=== PATIENT | male | born 1955 | race Caucasian/White ===

== ENCOUNTER 2018-10-07 08:07 | Inpatient (IN) | payer OTHER ==
[2018-10-07 08:29] VITALS: BMI 21.3
--- NOTE | 2018-10-07 08:50 | HP ---
CIWA Score Nausea/Vomitin-No Nausea/No Vomiting (patient meets criteria) Muscle Tremors: 6 Anxiety: 1-Mildly Anxious Agitation: 2 (patient is in withdrawals from alcohol) Paroxysmal Sweats: 1-Minimal Palms Moist Orientation: 0-Oriented Tacttile Disturbances: 1-Very Mild Itch/Numbness Auditory Disturbances: 1-Very Mild Visual Disturbances: 1-Very Mild Sensitivity Headache: 1-Very Mild CIWA-Ar Total Score: 14 - Admission Criteria OASAS Guidelines: Admission for Medically Managed Detox: Requires at least one of the followin. CIWA greater than 12 2. Seizures within the past 24 hours 3. Delirium tremens within the past 24 hours 4. Hallucinations within the past 24 hours 5. Acute intervention needed for co occurring medical disorder 6. Acute intervention needed for co occurring psychiatric disorder 7. Severe withdrawal that cannot be handled at a lower level of care (continued vomiting, continued diarrhea, abnormal vital signs) requiring intravenous medication and/or fluids 8. Admission ROS [facility] Chief Complaint: " I just want to get detoxed" " I'm going to check out this program and then return [facility]" "I want to go to the residential program once I finish detox." Allergies/Adverse Reactions: Allergies Allergy/AdvReac Type Severity Reaction Status Date / Time No Known Allergies Allergy Verified 10/07/18 08:25 History of Present Illness: This is a 63 year old male who has a history of alcohol dependence since 14 years old and starting drinking heavily at 21 years of age. Patient tripped and fell and was brought [facility] and was "drying out". Patient denies seizures from alcohol withdrawals. He drinks 1 pint of vodka, gin or perla and a 6 pack of beer per day. He is a cigarette smoker of 1ppd since 16 years of age. PMHx: Denies any medical history Psurg Hx: Tonsillectomy, had left arm fracture that he never got fixated and took off the temporary cast and never followed up with. Patient is homeless and lives with friends when he can. Patient has no legal issues pending. 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 He now wants to detox and followed by rehab here. Exam Limitations: No Limitations - Ebola screening Have you traveled outside of the country in the last 21 days: No Have you had contact with anyone from an Ebola affected area: No Have you been sick,other than usual withdrawal symptoms: No Do you have a fever: No - Review of Systems Constitutional: Chills, Diaphoresis, Loss of Appetite EENT: reports: No Symptoms Reported, Dental Problems (many missing teeth) Respiratory: reports: Cough (chronic cough productive of white mucuous) Cardiac: reports: No Symptoms Reported GI: reports: Indigestion : reports: No Symptoms Reported Musculoskeletal: reports: No Symptoms Reported Integumentary: reports: No Symptoms Reported Neuro: reports: Tremors Endocrine: reports: No Symptoms Reported Hematology: reports: No Symptoms Reported Psychiatric: reports: Judgement Intact, Mood/Affect Appropiate, Orientated x3 Other Systems: Reviewed and Negative Patient History - Patient Medical History Hx Anemia: No Hx Asthma: No Hx Chronic Obstructive Pulmonary Disease (COPD): No Hx Cancer: No Hx Cardiac Disorders: No Hx Congestive Heart Failure: No Hx Hypertension: No Hx Hypercholesterolemia: No Hx Pacemaker: No HX Cerebrovascular Accident: No Hx Seizures: No Hx Dementia: No Hx Diabetes: No Hx Gastrointestinal Disorders: No Hx Liver Disease: No Hx Genitourinary Disorders: No Hx Sexually Transmitted Disorders: No Hx Renal Disease (ESRD): No Hx Thyroid Disease: No Hx Human Immunodeficiency Virus (HIV): No Hx Hepatitis C: No Hx Depression: No Hx Suicide Attempt: No Hx Bipolar Disorder: No Hx Schizophrenia: No - Patient Surgical History Past Surgical History: No Hx Neurologic Surgery: No Hx Cataract Extraction: No Hx Cardiac Surgery: No Hx Lung Surgery: No Hx Breast Surgery: No Hx Breast Biopsy: No Hx Abdominal Surgery: No Hx Appendectomy: No Hx Cholecystectomy: No Hx Genitourinary Surgery: No Hx Section: No Hx Orthopedic Surgery: Yes (had a fracture left arm but never followed up) Hx Hysterectomy: No Anesthesia Reaction: No - PPD History Previous Implant?: Yes Documented Results: Negative w/o proof Implanted On Prior R Admission?: No Date: 04/15/16 (at [facility] in [place]) PPD to be Administered?: No - Reproductive History Patient is a Female of Child Bearing Age (11 -55 yrs old): No - Smoking Cessation Smoking history: Current every day smoker Have you smoked in the past 12 months: Yes Aproximately how many cigarettes per day: 20 Hx Chewing Tobacco Use: No Initiated information on smoking cessation: Yes 'Breaking Loose' booklet given: 10/07/18 - Substance & Tx. History Hx Alcohol Use: Yes (1 pint of vodka and 6 pack of beer per day) Hx Substance Use: No Hx Substance Use Treatment: Yes ([facility] in past) - Substances abused Alcohol Substance route: Oral Frequency: Daily Amount used: 1 pint of vodka & 6 pk beer Age of first use: 15 Date of last use: 10/06/18 Family Disease History - Family Disease History Family Disease History: Other: Father (Throat Cancer), Mother (Cancer, unknown) , Brother (1 brother alive and well, 1 brother of DM complications) , Sister (1 sister, unknown health) Admission Physical Exam [facility] - Vital Signs Vital Signs: Vital Signs - 24 hr 10/07/18 08:24 Temperature 98.8 F Pulse Rate 94 H Respiratory 20 Rate Blood Pressure 138/92 - Physical General Appearance: Yes: Disheveled, Moderate Distress HEENTM: Yes: EOMI, Hearing grossly Normal, Normal ENT Inspection, Normocephalic , Normal Voice, ASHLEY, Pharynx Normal Respiratory: Yes: Chest Non-Tender, Respiratory Distress, Wheezing, Expiration Neck: Yes: No masses,lesions,Nodules, Supple, Trachea in good position Breast: Yes: Within Normal Limits Cardiology: Yes: Regular Rhythm, S1, S2, Tachycardia Abdominal: Yes: Normal Bowel Sounds, Non Tender, Flat Genitourinary: Yes: Other (no penile discharge and no testicular masses) Back: Yes: Normal Inspection Musculoskeletal: Yes: full range of Motion, Gait Steady Extremities: Yes: Normal Capillary Refill, Normal Inspection, Normal Range of Motion, Non-Tender, Other (ulcer left heel of foot) 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, Fully Oriented, Alert, Motor Strength 5/5, Normal Mood/Affect Integumentary: Yes: Normal Color, Dry, Warm Lymphatic: Yes: Within Normal Limits - Diagnostic (1) Alcohol dependence with withdrawal Current Visit: Yes Status: Acute (2) Hypertension Current Visit: Yes Status: Acute (3) Ulcer of left heel Current Visit: Yes Status: Acute (4) Nicotine dependence with current use Current Visit: Yes Status: Acute Cleared for Admission [facility] - Detox or Rehab [facility] Level of Care: Medically Managed Detox Regimen/Protocol: Librium Screened but not Admitted - Documentation of Visit Screened but not Admitted: No Breathalyzer - Breathalyzer Breathalyzer: 0 (last drink more than 1 day ago) Vital Signs - Vital Signs Vital signs refused: No Temperature: 98.8 F Temperature source: Oral Pulse Rate: 94 Respiratory Rate: 20 Blood Pressure: 138/92 BP Location: Left Arm Blood Pressure position: Sitting - Height Height: 5 ft 6 in - Weight Weight: 132 lb Weight measurement method: Standing scale - BMI Body Mass Index (BMI): 21.3 - Bowel Function Bowel Movement: No Inpatient Rehab Admission - Rehab Decision to Admit Inpatient rehab admission?: No
[2018-10-07] MEDS ORDERED: MAGNESIUM CITRATE 300 ML BOTTLE PO PRN (09:11)
[2018-10-07] MEDS ORDERED: IBUPROFEN 400 MG TABLET (FP) PO PRN (09:11)
[2018-10-07] MEDS ORDERED: MAG HYDROX/AL HYDROX/SIMETH 30 ML UNIT-DOSE CUP PO PRN (09:11)
[2018-10-07] MEDS ORDERED: MELATONIN 5 MG TABLETS PO PRN (09:11)
[2018-10-07] MEDS ORDERED: chlordiazePOXIDE HCL 25 MG CAPSULE PO PRN (09:11)
[2018-10-07] MEDS ORDERED: BISMUTH SUBSALICYLATE 524 MG/30 ML UD PO PRN (09:11)
[2018-10-07] MEDS ORDERED: MENTHOL/PHENOL 1 EACH UD MM PRN (09:11)
[2018-10-07] MEDS ORDERED: METHOCARBAMOL 500 MG TABLET PO PRN (09:11)
[2018-10-07] MEDS ORDERED: MAGNESIUM HYDROX 2400MG/30ML ORAL SUSPENSION 30 ML CUP PO PRN (09:11)
[2018-10-07] MEDS ORDERED: hydrOXYzine PAMOATE 25 MG CAPSULE (FP) PO PRN (09:11)
[2018-10-07] MEDS ORDERED: ACETAMINOPHEN 325 MG TABLET (FP) PO PRN ×2 (09:11)
[2018-10-07] MEDS ORDERED: LISINOPRIL 5 MG TABLET (FP) PO ONE (10:20)
[2018-10-07] MEDS: PRENATAL VITAMINS W/ FOLIC ACID TABLET (FP) PO SCH (11:08)
[2018-10-07] MEDS: NICOTINE 21 MG/24 HOURS TOPICAL PATCH TD SCH (11:08)
[2018-10-07 11:51] LABS: HEMATOCRIT 40.3 % (35.4-49); HEMOGLOBIN 13.7 GM/dL (11.7-16.9); MCH 31.8 pg (25.7-33.7); MEAN CELL VOLUME 93.7 fl (80-96); MEAN PLT VOLUME 9.8 fl (7.5-11.1); RDW 14.6 % (11.9-15.9); WHITE BLOOD COUNT 9.8 K/mm3 (4.0-10.0)
[2018-10-07 12:09] LABS: BILIRUBIN,TOTAL 0.5 mg/dL (0.2-1); BLOOD UREA NITROGEN 7.2 mg/dL (7-18); CALCIUM 9.7 mg/dL (8.5-10.1); CREATININE 0.9 mg/dL (0.55-1.3); POTASSIUM 4.8 mmol/L (3.5-5.1)
[2018-10-07 12:16] LABS: PLATELET COUNT 316 K/MM3 (134-434)
[2018-10-07] MEDS: chlordiazePOXIDE HCL 25 MG CAPSULE PO SCH (22:20)
[2018-10-07] MEDS: THIAMINE HCL 100 MG TABLET (FP) PO SCH (22:20)
[2018-10-08] MEDS: chlordiazePOXIDE HCL 25 MG CAPSULE PO SCH ×4 (05:45→22:40)
--- NOTE | 2018-10-08 09:46 | PN ---
S CIWA - CIWA Score Nausea/Vomitin-No Nausea/No Vomiting Muscle Tremors: 3 Anxiety: 3 Agitation: 0-Normal Activity Paroxysmal Sweats: 3 Orientation: 0-Oriented Tacttile Disturbances: 0-None Auditory Disturbances: 0-None Visual Disturbances: 0-None Headache: 2-Mild CIWA-Ar Total Score: 11 S Progress Note (SOAP) Subjective: c/o headache, shakes, anxiety, and sweats. Objective: 10/08/18 09:45 Vital Signs 10/08/18 10/08/18 10/08/18 03:30 06:14 09:29 Temperature 96.8 F L 97.7 F Pulse Rate 79 75 80 Respiratory 18 16 18 Rate Blood Pressure 125/72 103/64 Lab Results WBC 9.8 K/mm3 (4.0-10.0) 10/07/18 09:30 RBC 4.30 M/mm3 (4.00-5.60) 10/07/18 09:30 Hgb 13.7 GM/dL (11.7-16.9) 10/07/18 09:30 Hct 40.3 % (35.4-49) 10/07/18 09:30 MCV 93.7 fl (80-96) 10/07/18 09:30 MCHC 34.0 g/dl (32.0-35.9) 10/07/18 09:30 RDW 14.6 % (11.9-15.9) 10/07/18 09:30 Plt Count 316 K/MM3 (134-434) 10/07/18 09:30 Sodium 136 mmol/L (136-145) 10/07/18 09:30 Potassium 4.8 mmol/L (3.5-5.1) 10/07/18 09:30 Chloride 100 mmol/L (98-107) 10/07/18 09:30 Carbon Dioxide 30 mmol/L (21-32) 10/07/18 09:30 Anion Gap 7 MMOL/L (8-16) L 10/07/18 09:30 BUN 7.2 mg/dL (7-18) 10/07/18 09:30 Creatinine 0.9 mg/dL (0.55-1.3) 10/07/18 09:30 Random Glucose 193 mg/dL (74-106) H 10/07/18 09:30 Calcium 9.7 mg/dL (8.5-10.1) 10/07/18 09:30 Labs noted. Assessment: 10/08/18 09:45 AOX3, in no acute distress. Full ROM, ambulating in the unit. Withdrawal symptoms. Plan: continue detox.
[2018-10-08] MEDS: PRENATAL VITAMINS W/ FOLIC ACID TABLET (FP) PO SCH (10:08)
[2018-10-08] MEDS: NICOTINE 21 MG/24 HOURS TOPICAL PATCH TD SCH (10:08)
[2018-10-08] MEDS: THIAMINE HCL 100 MG TABLET (FP) PO SCH (22:40)
[2018-10-09] MEDS: chlordiazePOXIDE HCL 25 MG CAPSULE PO SCH ×3 (05:58→18:06)
[2018-10-09] MEDS: NICOTINE 21 MG/24 HOURS TOPICAL PATCH TD SCH (10:20)
[2018-10-09] MEDS: PRENATAL VITAMINS W/ FOLIC ACID TABLET (FP) PO SCH (10:21)
[2018-10-09] MEDS ORDERED: PANTOPRAZOLE 40 MG TABLET (FP) PO SCH (11:00)
[2018-10-09] MEDS: PANTOPRAZOLE 40 MG TABLET (FP) PO SCH (11:29)
--- NOTE | 2018-10-09 14:27 | PN ---
S CIWA - CIWA Score Nausea/Vomitin-Mild Nausea/No Vomiting Muscle Tremors: 3 Anxiety: 3 Agitation: 2 Paroxysmal Sweats: 2 Orientation: 0-Oriented Tacttile Disturbances: 0-None Auditory Disturbances: 0-None Visual Disturbances: 0-None Headache: 0-None Present CIWA-Ar Total Score: 11 BHS Progress Note (SOAP) Subjective: Stomachache, tremor, interrupted sleep. Patient request ensure but noted with serum glucose level of 193. Will rule out DM, can order ensure when DM ruled out. Objective: 10/09/18 14:23 Last Vital Signs Temp Pulse Resp BP Pulse Ox 98.1 F 82 16 143/89 10/09/18 13:27 10/09/18 13:27 10/09/18 13:27 10/09/18 13:27 Laboratory Tests 10/07/18 10/07/18 10/07/18 09:30 09:30 09:30 WBC 9.8 RBC 4.30 Hgb 13.7 Hct 40.3 MCV 93.7 MCH 31.8 MCHC 34.0 RDW 14.6 Plt Count 316 MPV 9.8 Sodium 136 Potassium 4.8 Chloride 100 Carbon Dioxide 30 Anion Gap 7 L BUN 7.2 Creatinine 0.9 Est GFR (CKD-EPI)AfAm 104.98 Est GFR (CKD-EPI)NonAf 90.58 Random Glucose 193 H Calcium 9.7 Total Bilirubin 0.5 AST 25 ALT 23 Alkaline Phosphatase 76 Total Protein 8.0 Albumin 4.0 RPR Titer Nonreactive Labs reviewed: serum glucose 193mg/dl Assessment: 10/09/18 14:24 Withdrawal sxs Noted with hyperglycemia Plan: Continue detox Encouraged PO water intake Hyperglycemia: rule out dm (patient denies DM; repeat fasting glucose, send A1c)
[2018-10-09] MEDS: THIAMINE HCL 100 MG TABLET (FP) PO SCH (22:17)
[2018-10-09] MEDS ORDERED: chlordiazePOXIDE 5 MG CAPSULE PO SCH (23:00)
[2018-10-10] MEDS ORDERED: chlordiazePOXIDE HCL 10 MG CAPSULE PO PRN
[2018-10-10] MEDS ORDERED: chlordiazePOXIDE 5 MG CAPSULE ONE ×4 (05:11→21:46)
[2018-10-10] MEDS: chlordiazePOXIDE HCL 10 MG CAPSULE PO SCH ×4 (05:49→22:56)
[2018-10-10] MEDS: PANTOPRAZOLE 40 MG TABLET (FP) PO SCH (07:27)
[2018-10-10] MEDS: PRENATAL VITAMINS W/ FOLIC ACID TABLET (FP) PO SCH (11:14)
[2018-10-10] MEDS: NICOTINE 21 MG/24 HOURS TOPICAL PATCH TD SCH (11:14)
--- NOTE | 2018-10-10 13:46 | PN ---
S CIWA - CIWA Score Nausea/Vomitin (Stomach Cramping.) Muscle Tremors: 4-Moderate,w/Arms Extend Anxiety: 2 Agitation: 0-Normal Activity Paroxysmal Sweats: No Perspiration Orientation: 2-Disoriented Date<2 days Tacttile Disturbances: 0-None Auditory Disturbances: 0-None Visual Disturbances: 0-None Headache: 0-None Present CIWA-Ar Total Score: 10 BHS Progress Note (SOAP) Subjective: Stomach Cramping, Tremors, Anxious, Interrupted Sleep. Objective: PATIENT A & O X 2 (UNCERTAIN ABOUT CURRENT DAY / DATE). IN NO ACUTE DISTRESS. 10/10/18 13:48 Vital Signs Temperature 97.9 F 10/10/18 13:05 Pulse Rate 84 10/10/18 13:05 Respiratory Rate 17 10/10/18 13:05 Blood Pressure 109/57 L 10/10/18 13:05 O2 Sat by Pulse Oximetry (%) Laboratory Tests 10/07/18 10/07/18 10/07/18 09:30 09:30 09:30 WBC 9.8 RBC 4.30 Hgb 13.7 Hct 40.3 MCV 93.7 MCH 31.8 MCHC 34.0 RDW 14.6 Plt Count 316 MPV 9.8 Sodium 136 Potassium 4.8 Chloride 100 Carbon Dioxide 30 Anion Gap 7 L BUN 7.2 Creatinine 0.9 Est GFR (CKD-EPI)AfAm 104.98 Est GFR (CKD-EPI)NonAf 90.58 Random Glucose 193 H Fasting Glucose Hemoglobin A1c % Calcium 9.7 Total Bilirubin 0.5 AST 25 ALT 23 Alkaline Phosphatase 76 Total Protein 8.0 Albumin 4.0 RPR Titer Nonreactive 10/10/18 10/10/18 07:00 07:00 WBC RBC Hgb Hct MCV MCH MCHC RDW Plt Count MPV Sodium Potassium Chloride Carbon Dioxide Anion Gap BUN Creatinine Est GFR (CKD-EPI)AfAm Est GFR (CKD-EPI)NonAf Random Glucose Fasting Glucose 87 Hemoglobin A1c % 5.7 Calcium Total Bilirubin AST ALT Alkaline Phosphatase Total Protein Albumin RPR Titer LABS NOTED. RESULTS OF FASTING GLUCOSE LEVEL AND OF HGB A1C NOTED. RESULTS OF BOTH VALUES ARE WITHIN NORMAL RANGE. RESULTS OF DETOX ADMISSION QFT /TB TEST PENDING. 10/10/18 13:49 Assessment: 10/10/18 13:48 WITHDRAWAL SYMPTOMS. Plan: CONTINUE DETOX. INCREASE DAILY PO WATER INTAKE.
[2018-10-10] MEDS: THIAMINE HCL 100 MG TABLET (FP) PO SCH (22:56)
[2018-10-11] MEDS ORDERED: chlordiazePOXIDE HCL 10 MG CAPSULE PO SCH (05:00)
[2018-10-11] MEDS ORDERED: chlordiazePOXIDE 5 MG CAPSULE ONE (05:37)
--- NOTE | 2018-10-11 09:38 | PN ---
S CIWA - CIWA Score Nausea/Vomitin-Mild Nausea/No Vomiting Muscle Tremors: 1-None Visible, but [place] Anxiety: 1-Mildly Anxious Agitation: 1-Slight > Activity Paroxysmal Sweats: No Perspiration Orientation: 0-Oriented Tacttile Disturbances: 1-Very Mild Itch/Numbness Auditory Disturbances: 0-None Visual Disturbances: 0-None Headache: 2-Mild CIWA-Ar Total Score: 7 BHS Progress Note (SOAP) Subjective: alert,irritable,anxious,interrupted sleep Objective: 10/11/18 09:37 Vital Signs Temperature 98.3 F 10/11/18 09:14 Pulse Rate 81 10/11/18 09:14 Respiratory Rate 16 10/11/18 09:14 Blood Pressure 121/80 10/11/18 09:14 O2 Sat by Pulse Oximetry (%) Assessment: 10/11/18 09:37 withdrawal symptom Plan: continue detox librium regime,discharge in am
[2018-10-11] MEDS: PANTOPRAZOLE 40 MG TABLET (FP) PO SCH (11:20)
[2018-10-11] MEDS: NICOTINE 21 MG/24 HOURS TOPICAL PATCH TD SCH (11:24)
[2018-10-11] MEDS: PRENATAL VITAMINS W/ FOLIC ACID TABLET (FP) PO SCH (11:24)
--- NOTE | 2018-10-11 13:21 | PN ---
[facility] Progress Note Note: patient would like to be discharged today,feeling much better,stable for discharged,follow up with after care program as arrangement
[2018-10-11 13:22] VITALS: BP 132/93; PULSE 88; TEMP 97.5
--- NOTE | 2018-10-11 13:24 | DS ---
[facility] Detox Discharge Summary Admission Date: 10/07/18 Discharge Date: 10/11/18 - History Present History: Alcohol Dependence Additional Comments: patient is stable for discharge today,follow up with after care program as arrangement Pertinent Past History: hypertension nicotine dependence - Physical Exam Results Vital Signs: Vital Signs Temperature 98.3 F 10/11/18 09:14 Pulse Rate 81 10/11/18 09:14 Respiratory Rate 16 10/11/18 09:14 Blood Pressure 121/80 10/11/18 09:14 O2 Sat by Pulse Oximetry (%) Pertinent Admission Physical Exam Findings: withdrawal symptom Vital Signs Temperature 97.5 F L 10/11/18 13:21 Pulse Rate 88 10/11/18 13:21 Respiratory Rate 16 10/11/18 13:21 Blood Pressure 132/93 10/11/18 13:21 O2 Sat by Pulse Oximetry (%) Laboratory Last Values WBC 9.8 K/mm3 (4.0-10.0) 10/07/18 09:30 RBC 4.30 M/mm3 (4.00-5.60) 10/07/18 09:30 Hgb 13.7 GM/dL (11.7-16.9) 10/07/18 09:30 Hct 40.3 % (35.4-49) 10/07/18 09:30 MCV 93.7 fl (80-96) 10/07/18 09:30 MCH 31.8 pg (25.7-33.7) 10/07/18 09:30 MCHC 34.0 g/dl (32.0-35.9) 10/07/18 09:30 RDW 14.6 % (11.9-15.9) 10/07/18 09:30 Plt Count 316 K/MM3 (134-434) 10/07/18 09:30 MPV 9.8 fl (7.5-11.1) 10/07/18 09:30 Sodium 136 mmol/L (136-145) 10/07/18 09:30 Potassium 4.8 mmol/L (3.5-5.1) 10/07/18 09:30 Chloride 100 mmol/L (98-107) 10/07/18 09:30 Carbon Dioxide 30 mmol/L (21-32) 10/07/18 09:30 Anion Gap 7 MMOL/L (8-16) L 10/07/18 09:30 BUN 7.2 mg/dL (7-18) 10/07/18 09:30 Creatinine 0.9 mg/dL (0.55-1.3) 10/07/18 09:30 Est GFR (CKD-EPI)AfAm 104.98 10/07/18 09:30 Est GFR (CKD-EPI)NonAf 90.58 10/07/18 09:30 Random Glucose 193 mg/dL (74-106) H 10/07/18 09:30 Fasting Glucose 87 mg/dL (74-106) 10/10/18 07:00 Hemoglobin A1c % 5.7 % (4.2-6.3) 10/10/18 07:00 Calcium 9.7 mg/dL (8.5-10.1) 10/07/18 09:30 Total Bilirubin 0.5 mg/dL (0.2-1) 10/07/18 09:30 AST 25 U/L (15-37) 10/07/18 09:30 ALT 23 U/L (13-61) 10/07/18 09:30 Alkaline Phosphatase 76 U/L (45-117) 10/07/18 09:30 Total Protein 8.0 g/dl (6.4-8.2) 10/07/18 09:30 Albumin 4.0 g/dl (3.4-5.0) 10/07/18 09:30 RPR Titer Nonreactive (NONREACTIVE) 10/07/18 09:30 TB (QFT) Incubation (.) 10/07/18 09:30 TB Test (QFT) Nil 0.03 IU/mL (.) 10/07/18 09:30 TB Test (QFT) Mitogen 1.93 IU/mL (.) 10/07/18 09:30 TB Test (QFT) Antigen 0.05 IU/mL (.) 10/07/18 09:30 TB Test (QFT) Negative (Negative) 10/07/18 09:30 TB Positive Criteria (.) 10/07/18 09:30 - Treatment Hospital Course: Detox Protocol Followed, Detoxed Safely, Responded well, Discharged Condition Good Patient has Accepted a Rehab Referral to: declined - Medication Discharge Medications: Ambulatory Orders NK [No Known Home Medication] 10/07/18 - Diagnosis (1) Alcohol dependence with withdrawal Current Visit: Yes Status: Acute (2) Hypertension Current Visit: Yes Status: Acute (3) Nicotine dependence with current use Current Visit: Yes Status: Acute (4) Ulcer of left heel Current Visit: Yes Status: Acute - AMA Did Patient Leave Against Medical Advice: No
[2018-10-12] MEDS ORDERED: chlordiazePOXIDE HCL 10 MG CAPSULE PO ONE (05:00)
== END 2018-10-11 13:35 | disposition home or self-care (01) | DRG 775 ==
LOC: YASAS 08:07 → Y6N 09:39
PROVIDERS: ADMIT Surgery; ATTEND Surgery
PROC: HZ2ZZZZ Detoxification Services for Substance Abuse Treatment (ICD-10-PCS; principal; 2018-10-07)
DX: F10.230 Alcohol dependence with withdrawal, uncomplicated (principal); F17.210 Nicotine dependence, cigarettes, uncomplicated; I10 Essential (primary) hypertension; L97.429 Non-pressure chronic ulcer of left heel and midfoot with unspecified severity; R73.9 Hyperglycemia, unspecified; R00.0 Tachycardia, unspecified
CPT/HCPCS: 36415; 80053; 82947; 83036; 85027; 86480; 86593

== ENCOUNTER 2019-01-19 12:06 | Inpatient (IN) | payer OTHER ==
[2019-01-19 12:19] VITALS: BMI 20.3
--- NOTE | 2019-01-19 14:01 | HP ---
CIWA Score Nausea/Vomitin Muscle Tremors: 7-Severe,w/o Arm Extended Anxiety: 0-No Anxiety, at Ease Agitation: 4-Moderately Restless Paroxysmal Sweats: No Perspiration Orientation: 0-Oriented Tacttile Disturbances: 0-None Auditory Disturbances: 0-None Visual Disturbances: 0-None Headache: 0-None Present CIWA-Ar Total Score: 16 - Admission Criteria OASAS Guidelines: Admission for Medically Managed Detox: Requires at least one of the followin. CIWA greater than 12 2. Seizures within the past 24 hours 3. Delirium tremens within the past 24 hours 4. Hallucinations within the past 24 hours 5. Acute intervention needed for co occurring medical disorder 6. Acute intervention needed for co occurring psychiatric disorder 7. Severe withdrawal that cannot be handled at a lower level of care (continued vomiting, continued diarrhea, abnormal vital signs) requiring intravenous medication and/or fluids 8. Admitting History and Physical - Admission History Source: Patient Limitations to Obtaining History: No Limitations - Past Medical History Cardiovascular: Yes: HTN - Past Surgical History Past Surgical History: Yes: None - Smoking History Smoking history: Current every day smoker Have you smoked in the past 12 months: Yes Aproximately how many cigarettes per day: 20 - Alcohol/Substance Use Hx Alcohol Use: Yes (1 pint of vodka and 6 pack of beer per day) Admission [facility] Allergies/Adverse Reactions: Allergies Allergy/AdvReac Type Severity Reaction Status Date / Time No Known Allergies Allergy Verified 01/19/19 12:19 History of Present Illness: 63 y.o. M PMH HTN, varicose veins presenting for alcohol detox. Patient was at [facility] yesterday- gave librium. Last week patient was in [facility] in [place] for pneumonia. EtOH: Drinks daily, 1 pint vodka & 1 6 pack beers. Last drink yesterday. Has been drinking since age 14. Never had withdrawal seizures in the past. PSH: none Social hx: living with friend. Not currently working-- friend he lives with ows a liquor store which is how he gets the alcohol. All: None Meds: hasnt taken HTN meds in 1 week- says his PCP told him he needs to stop drinking with his BP meds, so he threw the meds in the trash Exam Limitations: No Limitations - Ebola screening Have you traveled outside of the country in the last 21 days: No Have you had contact with anyone from an Ebola affected area: No Do you have a fever: No - Review of Systems Constitutional: No Symptoms Reported EENT: reports: No Symptoms Reported Respiratory: reports: No Symptoms reported Cardiac: reports: No Symptoms Reported GI: reports: No Symptoms Reported Musculoskeletal: reports: No Symptoms Reported Integumentary: reports: Other (varicose veins b/l LE) Neuro: reports: Tremors Endocrine: reports: No Symptoms Reported Hematology: reports: No Symptoms Reported Psychiatric: reports: No Sypmtoms Reported, Orientated x3 Patient History - Patient Medical History Hx Anemia: No Hx Asthma: No Hx Chronic Obstructive Pulmonary Disease (COPD): No Hx Cancer: No Hx Cardiac Disorders: No Hx Congestive Heart Failure: No Hx Hypertension: Yes Hx Hypercholesterolemia: No Hx Pacemaker: No HX Cerebrovascular Accident: No Hx Seizures: No Hx Dementia: No Hx Diabetes: No Hx Gastrointestinal Disorders: No Hx Liver Disease: No Hx Genitourinary Disorders: No Hx Sexually Transmitted Disorders: No Hx Renal Disease (ESRD): No Hx Thyroid Disease: No Hx Human Immunodeficiency Virus (HIV): No Hx Hepatitis C: No Hx Depression: No Hx Suicide Attempt: No Hx Bipolar Disorder: No Hx Schizophrenia: No - Patient Surgical History Past Surgical History: No Hx Neurologic Surgery: No Hx Cataract Extraction: No Hx Cardiac Surgery: No Hx Lung Surgery: No Hx Breast Surgery: No Hx Breast Biopsy: No Hx Abdominal Surgery: No Hx Appendectomy: No Hx Cholecystectomy: No Hx Genitourinary Surgery: No Hx Section: No Hx Orthopedic Surgery: No Hx Hysterectomy: No Anesthesia Reaction: No - PPD History Date: 04/15/16 - Smoking Cessation Smoking history: Current every day smoker Have you smoked in the past 12 months: Yes Aproximately how many cigarettes per day: 20 Hx Chewing Tobacco Use: No Initiated information on smoking cessation: Yes 'Breaking Loose' booklet given: 01/19/19 - Substance & Tx. History Hx Alcohol Use: Yes Substance Use Type: Marijuana - Substances abused Alcohol Substance route: Oral Frequency: Daily Amount used: 1 pint of vodka & 6 pk beer Age of first use: 14 Date of last use: 01/18/19 Admission Physical Exam [facility] - Vital Signs Vital Signs: Vital Signs - 24 hr 01/19/19 12:15 Temperature 98.1 F Pulse Rate 77 Respiratory 18 Rate Blood Pressure 109/74 - Physical General Appearance: Yes: Tremorous HEENTM: Yes: Hearing grossly Normal, Normocephalic, ASHLEY, Other (poor dentition) Respiratory: Yes: Lungs Clear, Normal Breath Sounds, No Respiratory Distress, No Accessory Muscle Use Neck: Yes: No masses,lesions,Nodules Cardiology: Yes: Regular Rhythm, Regular Rate, S1, S2 Abdominal: Yes: Normal Bowel Sounds, Non Tender, Soft Back: Yes: Normal Inspection Musculoskeletal: Yes: Within Normal Limits Extremities: Yes: Normal Range of Motion, Other (varicose veins b/l LE) Neurological: Yes: vp & general counsel II-XII NML intact, Alert Integumentary: Yes: Within Normal Limits - Diagnostic (1) Alcohol dependence with withdrawal Current Visit: No Status: Acute Qualifiers: Complication of substance-induced condition: uncomplicated Qualified Code(s ): F10.230 - Alcohol dependence with withdrawal, uncomplicated (2) Hypertension Current Visit: No Status: Chronic Qualifiers: Hypertension type: essential hypertension Qualified Code(s): I10 - Essential (primary) hypertension Breathalyzer - Breathalyzer Breathalyzer: 0 Urine Drug Screen - Test Device Lot number: [id number] Expiration date: 10/05/20 - Control Is test valid?: Yes - Results Drug screen NEGATIVE: No Urine drug screen results: BZO-Benzodiazepines Inpatient Rehab Admission - Rehab Decision to Admit Inpatient rehab admission?: No
[2019-01-19] MEDS ORDERED: METHOCARBAMOL 500 MG TABLET PO PRN (14:31)
[2019-01-19] MEDS ORDERED: MAGNESIUM CITRATE 300 ML BOTTLE PO PRN (14:31)
[2019-01-19] MEDS ORDERED: MAG HYDROX/AL HYDROX/SIMETH 30 ML UNIT-DOSE CUP PO PRN (14:31)
[2019-01-19] MEDS ORDERED: ACETAMINOPHEN 325 MG TABLET (FP) PO PRN ×2 (14:31)
[2019-01-19] MEDS ORDERED: BISMUTH SUBSALICYLATE 262 MG/15 ML BTL PO PRN (14:31)
[2019-01-19] MEDS ORDERED: chlordiazePOXIDE HCL 25 MG CAPSULE PO PRN (14:31)
[2019-01-19] MEDS ORDERED: MENTHOL/PHENOL 1 EACH UD MM PRN (14:31)
[2019-01-19] MEDS ORDERED: MAGNESIUM HYDROX 2400MG/30ML ORAL SUSPENSION 30 ML CUP PO PRN (14:31)
[2019-01-19] MEDS ORDERED: IBUPROFEN 400 MG TABLET (FP) PO PRN (14:31)
[2019-01-19] MEDS ORDERED: hydrOXYzine PAMOATE 25 MG CAPSULE (FP) PO PRN (14:31)
--- NOTE | 2019-01-19 15:18 | PN ---
Teaching Attending Note Name of Resident: Lia Cabral ATTENDING PHYSICIAN STATEMENT I saw and evaluated the patient. I reviewed the resident's note and discussed the case with the resident. I agree with the resident's findings and plan as documented. SUBJECTIVE: 63 y.o. mal e here requesting detox from etoh use , reports 1 pint and 1 x 6-pk beer daily , latest use yesterday , denies w/d seizures . PMH HTN, varicose veins . Patient was at [facility] yesterday , given Librium , Last week patient was in [facility] [place] for pneumonia. OBJECTIVE: wnwd , UE tremors , jordon LE extensive varicose veins. Vital Signs - 24 hr 01/19/19 12:15 Temperature 98.1 F Pulse Rate 77 Respiratory 18 Rate Blood Pressure 109/74 ASSESSMENT AND PLAN: Alcohol dependence - Librium detox.
[2019-01-19] MEDS: chlordiazePOXIDE HCL 25 MG CAPSULE PO SCH ×2 (16:24→22:08)
[2019-01-19] MEDS: MELATONIN 5 MG TABLETS PO PRN (22:08)
[2019-01-19] MEDS: THIAMINE HCL 100 MG TABLET (FP) PO SCH (22:08)
[2019-01-20] MEDS: chlordiazePOXIDE HCL 25 MG CAPSULE PO SCH ×4 (05:46→22:19)
[2019-01-20 10:31] LABS: ALBUMIN 3.5 g/dl (3.4-5.0); BILIRUBIN,TOTAL 0.6 mg/dL (0.2-1); BLOOD UREA NITROGEN 17.2 mg/dL (7-18); CALCIUM 9.3 mg/dL (8.5-10.1); CREATININE 0.7 mg/dL (0.55-1.3); POTASSIUM 4.1 mmol/L (3.5-5.1); TOT PROT 6.4 g/dl (6.4-8.2)
[2019-01-20 10:42] LABS: HEMATOCRIT 37.5 % (35.4-49); HEMOGLOBIN 12.3 GM/dL (11.7-16.9); MCH 30.2 pg (25.7-33.7); MCHC 32.8 g/dl (32.0-35.9); MEAN CELL VOLUME 92.3 fl (80-96); MEAN PLT VOLUME 10.9 fl (7.5-11.1); PLATELET COUNT 231 K/MM3 (134-434); RBC 4.06 M/mm3 (4.00-5.60); RDW 16.3 % (11.9-15.9); WHITE BLOOD COUNT 5.8 K/mm3 (4.0-10.0)
[2019-01-20] MEDS: PRENATAL VITAMINS W/ FOLIC ACID TABLET (FP) PO SCH (11:06)
--- NOTE | 2019-01-20 12:02 | PN ---
S CIWA - CIWA Score Nausea/Vomitin-Mild Nausea/No Vomiting Muscle Tremors: 1-None Visible, but [place] Anxiety: 1-Mildly Anxious Agitation: 1-Slight > Activity Paroxysmal Sweats: 3 Orientation: 1-Uncertain about Date Tacttile Disturbances: 2-Mild Itch/Numbness/Burn Auditory Disturbances: 0-None Visual Disturbances: 0-None Headache: 1-Very Mild CIWA-Ar Total Score: 11 BHS Progress Note (SOAP) Subjective: interrupted sleep sweats, shakes , abdominal pain , heartburn Objective: 01/20/19 12:03 Vital Signs Temperature 97.5 F L 01/20/19 09:29 Pulse Rate 72 01/20/19 09:29 Respiratory Rate 16 01/20/19 09:29 Blood Pressure 110/72 01/20/19 09:29 O2 Sat by Pulse Oximetry (%) Laboratory Tests 01/20/19 01/20/19 01/20/19 07:00 07:00 07:00 WBC 5.8 RBC 4.06 Hgb 12.3 Hct 37.5 MCV 92.3 MCH 30.2 MCHC 32.8 RDW 16.3 H Plt Count 231 D MPV 10.9 D Sodium 140 Potassium 4.1 Chloride 106 Carbon Dioxide 30 Anion Gap 4 L BUN 17.2 Creatinine 0.7 Est GFR (CKD-EPI)AfAm 116.40 Est GFR (CKD-EPI)NonAf 100.43 Random Glucose 94 Calcium 9.3 Total Bilirubin 0.6 AST 13 L ALT 16 Alkaline Phosphatase 65 Total Protein 6.4 Albumin 3.5 RPR Titer Nonreactive pt aox3 in nad lying in bed Assessment: 01/20/19 12:03 withdrawal sx's gerd Plan: cont. detox increase protonix
[2019-01-20] MEDS ORDERED: PANTOPRAZOLE 40 MG TABLET (FP) PO ONE (12:30)
[2019-01-20] MEDS: THIAMINE HCL 100 MG TABLET (FP) PO SCH (22:19)
[2019-01-21] MEDS: chlordiazePOXIDE HCL 25 MG CAPSULE PO SCH ×4 (05:18→22:36)
[2019-01-21] MEDS ORDERED: NICOTINE POLACRILEX 4 MG GUM BUC PRN (09:21)
[2019-01-21] MEDS: PANTOPRAZOLE 40 MG TABLET (FP) PO SCH (10:32)
[2019-01-21] MEDS: PRENATAL VITAMINS W/ FOLIC ACID TABLET (FP) PO SCH (10:32)
[2019-01-21] MEDS: NICOTINE 21 MG/24 HOURS TOPICAL PATCH TD SCH (11:00)
--- NOTE | 2019-01-21 13:10 | PN ---
S CIWA - CIWA Score Nausea/Vomitin-No Nausea/No Vomiting Muscle Tremors: 4-Moderate,w/Arms Extend Anxiety: 2 Agitation: 3 Paroxysmal Sweats: No Perspiration Orientation: 2-Disoriented Date<2 days Tacttile Disturbances: 2-Mild Itch/Numbness/Burn Auditory Disturbances: 0-None Visual Disturbances: 0-None Headache: 0-None Present CIWA-Ar Total Score: 13 BHS Progress Note (SOAP) Subjective: Anxious, Tremors, Fatigue. Objective: PATIENT A & O X 2 (UNCERTAIN ABOUT CURRENT DAY/ DATE). PATIENT OBSERVED AMBULATING ON DETOX UNIT UNASSISTED. IN NO ACUTE DISTRESS. 01/21/19 13:09 Vital Signs Temperature 98.4 F 01/21/19 10:00 Pulse Rate 78 01/21/19 10:00 Respiratory Rate 18 01/21/19 10:00 Blood Pressure 101/59 L 01/21/19 10:00 O2 Sat by Pulse Oximetry (%) Laboratory Tests 01/20/19 01/20/19 01/20/19 07:00 07:00 07:00 WBC 5.8 RBC 4.06 Hgb 12.3 Hct 37.5 MCV 92.3 MCH 30.2 MCHC 32.8 RDW 16.3 H Plt Count 231 D MPV 10.9 D Sodium 140 Potassium 4.1 Chloride 106 Carbon Dioxide 30 Anion Gap 4 L BUN 17.2 Creatinine 0.7 Est GFR (CKD-EPI)AfAm 116.40 Est GFR (CKD-EPI)NonAf 100.43 Random Glucose 94 Calcium 9.3 Total Bilirubin 0.6 AST 13 L ALT 16 Alkaline Phosphatase 65 Total Protein 6.4 Albumin 3.5 RPR Titer Nonreactive LABS NOTED. Assessment: 01/21/19 13:10 WITHDRAWAL SYMPTOMS. Plan: CONTINUE DETOX.
[2019-01-21] MEDS: THIAMINE HCL 100 MG TABLET (FP) PO SCH (22:36)
[2019-01-22] MEDS ORDERED: chlordiazePOXIDE HCL 10 MG CAPSULE PO PRN
[2019-01-22] MEDS: chlordiazePOXIDE HCL 10 MG CAPSULE PO SCH ×4 (05:36→22:20)
[2019-01-22] MEDS: NICOTINE 21 MG/24 HOURS TOPICAL PATCH TD SCH (11:05)
[2019-01-22] MEDS: PANTOPRAZOLE 40 MG TABLET (FP) PO SCH (11:32)
[2019-01-22] MEDS: PRENATAL VITAMINS W/ FOLIC ACID TABLET (FP) PO SCH (11:32)
--- NOTE | 2019-01-22 12:25 | PN ---
S CIWA - CIWA Score Nausea/Vomitin-Mild Nausea/No Vomiting Muscle Tremors: 2 Anxiety: 2 Agitation: 2 Paroxysmal Sweats: 2 Orientation: 0-Oriented Tacttile Disturbances: 0-None Auditory Disturbances: 0-None Visual Disturbances: 0-None Headache: 0-None Present CIWA-Ar Total Score: 9 BHS Progress Note (SOAP) Subjective: Tremor Objective: 01/22/19 12:24 Last Vital Signs Temp Pulse Resp BP Pulse Ox 96.6 F L 88 18 122/69 01/22/19 10:46 01/22/19 10:46 01/22/19 10:46 01/22/19 10:46 Laboratory Tests 01/20/19 01/20/19 01/20/19 07:00 07:00 07:00 WBC 5.8 RBC 4.06 Hgb 12.3 Hct 37.5 MCV 92.3 MCH 30.2 MCHC 32.8 RDW 16.3 H Plt Count 231 D MPV 10.9 D Sodium 140 Potassium 4.1 Chloride 106 Carbon Dioxide 30 Anion Gap 4 L BUN 17.2 Creatinine 0.7 Est GFR (CKD-EPI)AfAm 116.40 Est GFR (CKD-EPI)NonAf 100.43 Random Glucose 94 Calcium 9.3 Total Bilirubin 0.6 AST 13 L ALT 16 Alkaline Phosphatase 65 Total Protein 6.4 Albumin 3.5 RPR Titer Nonreactive Labs reviewed Assessment: 01/22/19 12:25 Withdrawal sxs Plan: Continue detox Encouraged PO water intake
[2019-01-22] MEDS: THIAMINE HCL 100 MG TABLET (FP) PO SCH (22:20)
[2019-01-23] MEDS: chlordiazePOXIDE HCL 10 MG CAPSULE PO SCH ×2 (05:28→17:09)
--- NOTE | 2019-01-23 10:42 | PN ---
S CIWA - CIWA Score Nausea/Vomitin-No Nausea/No Vomiting Muscle Tremors: 1-None Visible, but [place] Anxiety: 1-Mildly Anxious Agitation: 1-Slight > Activity Paroxysmal Sweats: No Perspiration Orientation: 0-Oriented Tacttile Disturbances: 1-Very Mild Itch/Numbness Auditory Disturbances: 0-None Visual Disturbances: 0-None Headache: 2-Mild CIWA-Ar Total Score: 6 BHS Progress Note (SOAP) Subjective: alert,irritable,anxious,interrupted sleep, Objective: 01/23/19 10:41 Vital Signs Temperature 97.7 F 01/23/19 09:22 Pulse Rate 91 H 01/23/19 09:22 Respiratory Rate 18 01/23/19 09:22 Blood Pressure 107/62 01/23/19 09:22 O2 Sat by Pulse Oximetry (%) Assessment: 01/23/19 10:41 withdrawal symptom Plan: continue detox librium regimen,discharge in am
[2019-01-23] MEDS: PRENATAL VITAMINS W/ FOLIC ACID TABLET (FP) PO SCH (10:53)
[2019-01-23] MEDS: NICOTINE 21 MG/24 HOURS TOPICAL PATCH TD SCH (10:53)
[2019-01-23] MEDS: PANTOPRAZOLE 40 MG TABLET (FP) PO SCH (10:53)
[2019-01-23] MEDS: THIAMINE HCL 100 MG TABLET (FP) PO SCH (22:03)
[2019-01-23] MEDS: MELATONIN 5 MG TABLETS PO PRN (22:03)
[2019-01-24] MEDS ORDERED: chlordiazePOXIDE HCL 10 MG CAPSULE PO ONE (05:00)
--- NOTE | 2019-01-24 09:32 | DS ---
[facility] Detox Discharge Summary Admission Date: 01/19/19 Discharge Date: 01/24/19 - History Present History: Alcohol Dependence - Physical Exam Results Vital Signs: Vital Signs Temperature 97.3 F L 01/24/19 06:39 Pulse Rate 66 01/24/19 06:39 Respiratory Rate 18 01/24/19 06:39 Blood Pressure 118/74 01/24/19 06:39 O2 Sat by Pulse Oximetry (%) Pertinent Admission Physical Exam Findings: pt arrived in withdrawals Vital Signs Temperature 97.3 F L 01/24/19 06:39 Pulse Rate 66 01/24/19 06:39 Respiratory Rate 18 01/24/19 06:39 Blood Pressure 118/74 01/24/19 06:39 O2 Sat by Pulse Oximetry (%) Laboratory Tests 01/20/19 01/20/19 01/20/19 07:00 07:00 07:00 WBC 5.8 RBC 4.06 Hgb 12.3 Hct 37.5 MCV 92.3 MCH 30.2 MCHC 32.8 RDW 16.3 H Plt Count 231 D MPV 10.9 D Sodium 140 Potassium 4.1 Chloride 106 Carbon Dioxide 30 Anion Gap 4 L BUN 17.2 Creatinine 0.7 Est GFR (CKD-EPI)AfAm 116.40 Est GFR (CKD-EPI)NonAf 100.43 Random Glucose 94 Calcium 9.3 Total Bilirubin 0.6 AST 13 L ALT 16 Alkaline Phosphatase 65 Total Protein 6.4 Albumin 3.5 RPR Titer Nonreactive today pt is aaox3 ambulating no acute distress - Treatment Hospital Course: Detox Protocol Followed, Detoxed Safely, Responded well, Discharged Condition Good, Rehab Referral Accepted Patient has Accepted a Rehab Referral to: pt referred to [facility] inpatient rehab - Medication Discharge Medications: Ambulatory Orders NK [No Known Home Medication] 10/07/18 - Diagnosis (1) Alcohol dependence with withdrawal Current Visit: Yes Status: Chronic Qualifiers: Complication of substance-induced condition: uncomplicated Qualified Code(s ): F10.230 - Alcohol dependence with withdrawal, uncomplicated (2) Nicotine dependence with current use Current Visit: Yes Status: Chronic (3) Hypertension Current Visit: Yes Status: Chronic Qualifiers: Hypertension type: essential hypertension Qualified Code(s): I10 - Essential (primary) hypertension - AMA Did Patient Leave Against Medical Advice: No
[2019-01-24 10:16] VITALS: BP 120/73; PULSE 80; TEMP 98.2
[2019-01-24] MEDS: PANTOPRAZOLE 40 MG TABLET (FP) PO SCH (10:47)
[2019-01-24] MEDS: NICOTINE 21 MG/24 HOURS TOPICAL PATCH TD SCH (10:48)
[2019-01-24] MEDS: PRENATAL VITAMINS W/ FOLIC ACID TABLET (FP) PO SCH (10:49)
== END 2019-01-24 12:00 | disposition other institution (70) | DRG 775 ==
LOC: YASAS 12:06 → Y6N 15:13
PROVIDERS: ADMIT Allergy & Immunology; ATTEND Allergy & Immunology
PROC: HZ2ZZZZ Detoxification Services for Substance Abuse Treatment (ICD-10-PCS; principal; 2019-01-19)
DX: F10.230 Alcohol dependence with withdrawal, uncomplicated (principal); F17.210 Nicotine dependence, cigarettes, uncomplicated; I10 Essential (primary) hypertension; I83.93 Asymptomatic varicose veins of bilateral lower extremities
CPT/HCPCS: 36415; 80053; 85027; 86593